=== PATIENT | female | born 1985 | race Two or more races ===

== ENCOUNTER 2024-11-07 14:28 | Emergency (ER) | payer OTHER, SELFPAY ==
--- NOTE | 2024-11-07 14:33 | EKG_ITS ---
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
[2024-11-07 14:36] VITALS: BP 124/82; PULSE 77; RESP 26; TEMP 37; O2SAT 99
--- NOTE | 2024-11-07 14:48 | EDNOTE_ITS ---
ED Chest Pain RME/HPI General Chief Complaint: Chest Pain Stated Complaint: CHEST PAIN WITH SOB Time Seen by Provider: 11/07/24 14:39 Arrival date/time: 11/07/24 14:28 This is a 39-year-old female that is brought in by with complaints of chest pain and shortness of breath. Patient states she was just seen in [facility] for similar reasons yesterday. Patient was told her blood pressure was high. Today patient states she feels little dizzy. Patient reports history of high cholesterol. Related Data Previous Rx's ?Medication ?Instructions ?Recorded ibuprofen 600 mg tablet 600 mg PO TID PRN pain #30 t abs 11/18/22 meclizine 50 mg tablet 50 mg PO BID PRN dizziness # 20 tabs 11/07/24 Allergies Allergy/AdvReac Type Severity Reaction Status Date / Time No Known Allergies Allergy Verified 11/18/22 19:00 Review of Systems Review of Systems Systems Reviewed: All systems reviewed, normal except as documented Past Medical History Past Medical History Comments PMH COMMENT: see hpi ED Exam General General appearance: Present alert and in no apparent distress Head Head exam: Present atraumatic Eye Eye exam: Present normal appearance, PERRL and EOMI ENT ENT exam: Present normal exam, normal oropharynx and mucous membranes moist Neck Neck exam: Present normal inspection, full ROM and trachea midline Chest Chest inspection: Present normal inspection and symmetric chest wall rise Respiratory Respiratory exam: Present normal lung sounds bilaterally Cardiovascular Cardiovascular exam: Present regular rate, normal rhythm and normal heart sounds Abdominal Exam Abdominal exam: Present soft Extremities Exam Extremities exam: Present normal inspection and full ROM Back Exam Back exam: Present normal inspection and full ROM Neurological Exam Neurological exam: Present alert, oriented X3 and CN II-XII intact Psychiatric Psychiatric exam: Present normal affect and normal mood Skin Skin exam: Present warm, dry, intact and normal color Course Quality Measures none Orders Category Date Time Status EKG (ED ONLY) *Do not use* NOW Care 11/07/24 14:33 Completed EKG (ED Only) Stat Exams 11/07/24 14:33 Draft Meclizine HCl [Antivert] Med 11/07/24 14:47 Discontinued 25 mg PO X1 ONE Vital Signs Vital signs: Vital Signs Temperature 98.6 F 11/07/24 14:36 Pulse Rate 77 11/07/24 14:36 Respiratory Rate 26 H 11/07/24 14:36 Blood Pressure 124/82 11/07/24 14:36 Pulse Oximetry (%) 99 11/07/24 14:36 Oxygen Delivery Method Room Air 11/07/24 14:36 Procedures -ED EKG Interpretation #1: Date of EK11/07/24 Time of EK:35 Rate: 77 Interpretation: Interpreted by me (sinus rhythm ) EKG Impression: No ectopy, Normal QRS and Normal intervals Chest Pain MDM Narrative MDM Narrative:: Patient was given a dose of meclizine. Patient states she feels better. She did not want to wait for x-ray or further labs or tests. Patient states she feels better. I asked patient if she has anxiety and she denies. Patient rep orts that over the last week she has been feeling dizzy. She does feel better with meclizine given. I will prescribe her meclizine to go home with. I did urge patient to follow-up with her primary provider in 1 to 2 days. Come back to the emergency room symptoms change or worsen. Patient did not want to wait for further tests to be done. Patient data External records reviewed:: [facility] previous records Clinical information provided by:: patient Social determinants that could affect healthcare access:: none Patient has the following chronic illnesses:: none How is presenting disease/condition affected by chronic disease/condition?: no chronic disease Evaluation data The following diagnostics were reviewed and interpreted by me:: EKG tracing(s) Lab and/or radiology exams considered but not ordered:: none Interpretation Summary: see note Medications / Prescriptions Medications or Prescriptions considered but not ordered:: none Medication administrations:: Medication Administration History Discontinued Medications Meclizine HCl (Meclizine Hcl 25 Mg Tablet) 25 mg PO X1 ONE Stop: 11/07/24 14:48 Last Admin: 11/07/24 14:51 Dose: 25 mg Documented By: KF see mar Consultations Consultation(s) initiated? (list below): No Diagnosis Chest Pain Differential Diagnosis: atypical chest pain, st elevation myocardial infarction, costochondritis, chest pain and other (anxiety) Most likely diagnosis given after review of the tests above:: anxiey Admission Indicated Admission indicated?: not indicated Admission Request Was there a request for admission?: No Disposition Plan Disposition Plan: Discharge Discharge Attestation Discharge Attestation: The patient and all family members were given an opportunity to ask questions and understood the discharge instructions. Discharge instructions specifically effects, indications for sooner follow up or return to the emergency department, and the expected course of current diagnosis. Patient condition: Stable Discharge Plan Plan Patient Disposition: HOME (Self Care) Patient condition on transfer: Stable Prescriptions/Referrals Prescriptions/Med Rec: New meclizine 50 mg tablet 50 mg PO BID PRN (Reason: dizziness) Qty: 20 0RF No Action ibuprofen 600 mg tablet 600 mg PO TID PRN (Reason: pain) Qty: 30 0RF Referrals: Jocelyn Kruger MD [Primary Care Provider] - In 1 week Problem List Clinical Impression: Chest pain, Anxiety, Dizziness Patient/Caregiver Discharge Instructions Discharge Activity: activity as tolerated Education Materials: Vertigo Medicine Tx, ED Anxiety Reaction Additional Instructions: Follow up with primary provider in 1-2 days. Come back to ED if symptoms change or worsen Print Language: [place] Stand Alone Forms: Nat Award Info., Patient Portal Info Letter CAROLYN/LEONIE Supervising Physician CAROLYN/LEONIE Supervising Physician: MAURA
[2024-11-07] MEDS: MECLIZINE HCL 25 MG TABLET PO (14:51)
== END 2024-11-07 15:39 | disposition home or self-care (01) ==
PROVIDERS: Emergency Provider Emergency Medicine; PCP Family Medicine
DX: F41.9 Anxiety disorder, unspecified (principal); R07.9 Chest pain, unspecified; R42 Dizziness and giddiness; R94.31 Abnormal electrocardiogram [ECG] [EKG]; E78.00 Pure hypercholesterolemia, unspecified
CPT/HCPCS: 93005; 99283; A9270